=== PATIENT | male | born 1995 | race African-American/Black ===

== ENCOUNTER 2017-12-09 15:54 | Emergency (ER) | payer SELFPAY ==
[2017-12-09] MEDS: LIDOCAINE WITH 8.4% SOD BICARB 3 ML DISP.SYRIN. INJ (16:30)
[2017-12-09] MEDS: DIPHTH,PERTUSS(ACELL),TET TOX 0.5 ML DISP.SYRIN. VAX IM (16:57)
== END 2017-12-09 16:52 | disposition home or self-care (01) ==
LOC: ER 15:54
DX: L02.01 Cutaneous abscess of face (principal); L03.211 Cellulitis of face
CPT/HCPCS: 10060; 90471; 90715; 99283-25